=== PATIENT | female | born 1940 | race Caucasian/White ===

== ENCOUNTER 2017-11-04 09:37 | Day surgery (SDC) | payer OTHER ==
[~2017-11-04] VITALS: Ht 162.6 cm; Wt 53.2 kg
[~2017-11-04 09:37] MED LIST: ACET325 PO; ALBU90OI6 INH; ASPI81CH PO; ATOR40TA PO; Ativan0.5 MG PO; CALCAVITD PO; DILT120ERA PO; DILT180 PO; DOCU100 PO; Duoneb 2.5-0.5 M3 ML INH; FISH1000 PO; FLUSAL2505 INH; Hair, Skin & N1 EACH PO; LEVO750 PO; MIRT15 PO; MSM1000 M1 PO; OXYC1TAB11; PRED20 PO; Prednisone20 MG PO; ROFL500T PO; TIOT18; TOCO400 PO; Ventolin Soln3 ML INH; ZESTORETIC 20-121 EA; Zithromax250 MG PO
[2017-11-04] MEDS ORDERED: BREO ELLIPTA 11 EACH (10:22)
== END 2017-11-04 12:43 | disposition home or self-care (01) ==
LOC: ORSCSDS 09:37
DX: R13.10 Dysphagia, unspecified (principal); K29.70 Gastritis, unspecified, without bleeding; K20.9 Esophagitis, unspecified; Z86.010 Personal history of colon polyps; J44.9 Chronic obstructive pulmonary disease, unspecified; R09.02 Hypoxemia; I10 Essential (primary) hypertension; Z99.81 Dependence on supplemental oxygen; Z79.899 Other long term (current) drug therapy; Z87.891 Personal history of nicotine dependence
CPT/HCPCS: 88305; 88342; J7120

== ENCOUNTER 2017-12-29 13:51 | Inpatient (IN) | payer OTHER ==
[~2017-12-29] VITALS: Ht 160 cm; Wt 54.4 kg
[~2017-12-29 13:51] MED LIST changes: +BREO ELLIPTA 11 EACH; -TIOT18; +TIOT18 INH; -ZESTORETIC 20-121 EA; +ZESTORETIC 20-121 EA PO
[2018-01-04 04:19] LABS: BASOPHILS ABSOLUTE AUTO 0.01 K/mm3 (0.00-0.23); BASOPHILS PERCENT AUTO 0 % (0-2); EOSINOPHILS ABSOLUTE AUTO 0.06 K/mm3 (0.00-0.68); EOSINOPHILS PERCENT AUTO 1 % (0-6); Hematocrit 26.1 % (33.0-51.0); Hemoglobin 8.6 g/dL (11.5-16.0); IMMATURE GRAN ABSOLUTE AUTO 0.02 K/mm3 (0.00-0.10); IMMATURE GRAN PERCENT AUTO 0 % (0-1); LYMPHOCYTES ABSOLUTE AUTO 0.69 K/mm3 (0.84-5.20); LYMPHOCYTES PERCENT AUTO 12 % (21-46); MONOCYTES ABSOLUTE AUTO 0.83 K/mm3 (0.16-1.47); MONOCYTES PERCENT AUTO 15 % (4-13); Mean Corpuscular HGB 28.6 pg (26.0-34.0); Mean Corpuscular Volume 87 fL (80-100); Mean Platelet Volume 9.1 fL (9.1-12.4); NEUTROPHILS PERCENT AUTO 71 % (41-73); Platelet Count 196 K/mm3 (150-400); RDW Coefficient Variation 13.2 % (11.7-14.2); RDW Standard Deviation 41.1 fL (35.1-46.3); Red Blood Cell Count 3.01 M/mm3 (3.80-5.20); White Blood Cell Count 5.61 K/mm3 (4.00-11.30)
[2018-01-04 04:45] LABS: Bun/Creatinine Ratio 17.5 (12.0-20.0); Calcium, Blood 8.4 mg/dL (8.5-10.1); Creatinine, Blood 1.03 mg/dL (0.40-1.00); Magnesium, Blood 1.6 mg/dL (1.6-2.4); Potassium, Blood 3.7 mmol/L (3.5-5.5)
[2018-01-05] MEDS ORDERED: OXYC5 PO (08:20)
== END 2018-01-05 15:52 | disposition home health service (06) | DRG 470 ==
LOC: SURS 01-03 12:15 → PRE IP 01-03 14:00 → SURS 01-03 17:56
PROVIDERS: Orthopaedic Surgery
PROC: 0SR90JZ Replacement of Right Hip Joint with Synthetic Substitute, Open Approach (ICD-10-PCS; principal; 2018-01-03 14:00)
DX: M16.11 Unilateral primary osteoarthritis, right hip (principal); I10 Essential (primary) hypertension; D64.9 Anemia, unspecified; J44.9 Chronic obstructive pulmonary disease, unspecified; K75.9 Inflammatory liver disease, unspecified
CPT/HCPCS: 36415; 72170; 80048; 83735; 85025; 86850; 86900; 86901; 94640; 94667; 94760; 97110; 97116; 97162; 97530; C1713; C1776; G8978; G8979; J0171; J0690; J0735; J1885; J2250; J2795; J3010; J7120; Q0163

== ENCOUNTER 2018-04-18 16:08 | Inpatient (IN) | payer OTHER ==
[~2018-04-18] VITALS: Ht 160 cm; Wt 61.7 kg
[~2018-04-18 16:08] MED LIST changes: +LISINOPRIL/HYDROCHLO PO; +OXYC5 PO; -ZESTORETIC 20-121 EA PO
[2018-04-18 16:48] LABS: Base Excess Venous 3.4 mmol/L; Bicarbonate Venous 26.9 mmol/L (24.0-30.0); PCO2 Venous 46.1 mmHg (38-42); PO2 Venous 81.9 mmHg (38-42)
[2018-04-18 16:53] LABS: Hematocrit 32.4 % (33.0-51.0); Mean Corpuscular HGB 30.4 pg (26.0-34.0); Mean Corpuscular Volume 90 fL (80-100); Platelet Count 234 K/mm3 (150-400); RDW Coefficient Variation 14.6 % (11.7-14.2); Red Blood Cell Count 3.62 M/mm3 (3.80-5.20); White Blood Cell Count 14.53 K/mm3 (4.00-11.30)
[2018-04-18 17:45] LABS: BAND PERCENT MAN 16 % (0-8); BASOPHILS PERCENT MAN 0 % (0-2); EOSINOPHILS PERCENT MAN 0 % (0-6); LYMPHOCYTES ABSOLUTE MAN 0.58 K/mm3 (0.84-5.20); LYMPHOCYTES PERCENT MAN 4 % (21-46); MONOCYTES PERCENT MAN 9 % (4-13); NEUTROPHILS ABSOLUTE MAN 12.64 K/mm3 (1.96-9.15); SEG NEUTROPHILS PERCENT MAN 71 % (41-73); TOTAL CELLS COUNTED 100
[2018-04-18 20:15] LABS: Albumin/Globulin Ratio 0.7 (0.8-1.8); Bun/Creatinine Ratio 36.5 (12.0-20.0); Globulin, Blood 4.4 g/dL (2.2-4.0); Potassium, Blood 3.8 mmol/L (3.5-5.5); Total Protein, Blood 7.4 g/dL (6.4-8.2)
[2018-04-18 20:56] LABS: Bilirubin, Total 0.4 mg/dL (0.1-1.0)
[2018-04-19 03:11] LABS: Source, Urine Voided
[2018-04-19 03:13] LABS: Bilirubin, Urine Neg (Neg); Blood, Urine 1+ (Neg); Glucose Qualitative, Urine Neg (Neg); Ketones, Urine 1+ (Neg); Leukocyte Esterase, Urine 1+ (Neg); Nitrite, Urine Neg (Neg); Protein, Urine 2+ (Neg); Urobilinogen, Urine NORM (Normal)
[2018-04-19 03:17] LABS: Appearance, Urine Hazy (Clear); Color, Urine Amber (P-Yellow)
[2018-04-19 03:19] LABS: Amorphous Light (0-Heavy); Bacteria Mod /hpf; Granular Casts 0-2 /lpf (0); Hyaline Casts 0-2 /lpf (0-2); Red Blood Cells, Urine 0-2 /hpf (0-2); Squamous Epithelial Cells Not Seen /hpf (Few)
[2018-04-19 05:43] LABS: BASOPHILS ABSOLUTE AUTO 0.02 K/mm3 (0.00-0.23); BASOPHILS PERCENT AUTO 0 % (0-2); EOSINOPHILS PERCENT AUTO 0 % (0-6); Hematocrit 30.4 % (33.0-51.0); IMMATURE GRAN ABSOLUTE AUTO 0.17 K/mm3 (0.00-0.10); IMMATURE GRAN PERCENT AUTO 2 % (0-1); LYMPHOCYTES PERCENT AUTO 4 % (21-46); MONOCYTES ABSOLUTE AUTO 0.79 K/mm3 (0.16-1.47); MONOCYTES PERCENT AUTO 8 % (4-13); Mean Corpuscular HGB 29.1 pg (26.0-34.0); Mean Corpuscular HGB Conc 32.9 g/dL (31.5-36.5); Mean Corpuscular Volume 88 fL (80-100); NEUTROPHILS ABSOLUTE AUTO 9.02 K/mm3 (1.96-9.15); NEUTROPHILS PERCENT AUTO 87 % (41-73); Platelet Count 173 K/mm3 (150-400); RDW Coefficient Variation 14.5 % (11.7-14.2); Red Blood Cell Count 3.44 M/mm3 (3.80-5.20)
[2018-04-19 06:08] LABS: Bun/Creatinine Ratio 44.2 (12.0-20.0); Calcium, Blood 7.9 mg/dL (8.5-10.1); Creatinine, Blood 1.38 mg/dL (0.40-1.00); Potassium, Blood 3.5 mmol/L (3.5-5.5)
[2018-04-20 05:26] LABS: BASOPHILS ABSOLUTE AUTO 0.01 K/mm3 (0.00-0.23); BASOPHILS PERCENT AUTO 0 % (0-2); EOSINOPHILS ABSOLUTE AUTO 0.02 K/mm3 (0.00-0.68); EOSINOPHILS PERCENT AUTO 0 % (0-6); Hematocrit 29.5 % (33.0-51.0); Hemoglobin 9.3 g/dL (11.5-16.0); IMMATURE GRAN ABSOLUTE AUTO 0.02 K/mm3 (0.00-0.10); IMMATURE GRAN PERCENT AUTO 0 % (0-1); LYMPHOCYTES ABSOLUTE AUTO 0.58 K/mm3 (0.84-5.20); LYMPHOCYTES PERCENT AUTO 7 % (21-46); MONOCYTES PERCENT AUTO 12 % (4-13); Mean Corpuscular HGB 28.6 pg (26.0-34.0); Mean Corpuscular HGB Conc 31.5 g/dL (31.5-36.5); Mean Platelet Volume 9.7 fL (9.1-12.4); NEUTROPHILS PERCENT AUTO 80 % (41-73); Platelet Count 162 K/mm3 (150-400); RDW Coefficient Variation 14.1 % (11.7-14.2); RDW Standard Deviation 47.1 fL (35.1-46.3); Red Blood Cell Count 3.25 M/mm3 (3.80-5.20); White Blood Cell Count 7.83 K/mm3 (4.00-11.30)
[2018-04-20 05:37] LABS: Mean Corpuscular Volume 91 fL (80-100)
[2018-04-20 06:01] LABS: Anion Gap 7 mmol/L (6-16); Blood Urea Nitrogen 35 mg/dL (8-24); Bun/Creatinine Ratio 37.6 (12.0-20.0); CO2, Blood 24 mmol/L (21-32); Calcium, Blood 7.8 mg/dL (8.5-10.1); Chloride, Blood 108 mmol/L (98-108); Creatinine, Blood 0.93 mg/dL (0.40-1.00); Glomerular Filtration Rate >60 (60-); Glucose, Blood 120 mg/dL (70-99); Potassium, Blood 4.3 mmol/L (3.5-5.5); Sodium, Blood 139 mmol/L (136-145)
[2018-04-20] MEDS ORDERED: ALBU90OI61 INH (09:19)
[2018-04-20] MEDS ORDERED: ALBU2.5V5 NEB (09:21)
[2018-04-20] MEDS ORDERED: IPRATROPIUM BROMIDE INH (09:24)
[2018-04-20] MEDS ORDERED: DOXE10 PO (09:25)
[2018-04-20] MEDS ORDERED: HYDCHL12.5 PO (09:33)
[2018-04-20] MEDS ORDERED: Prinivil10 MG PO (09:33)
[2018-04-22 05:11] LABS: BASOPHILS ABSOLUTE AUTO 0.01 K/mm3 (0.00-0.23); BASOPHILS PERCENT AUTO 0 % (0-2); EOSINOPHILS ABSOLUTE AUTO 0.18 K/mm3 (0.00-0.68); EOSINOPHILS PERCENT AUTO 3 % (0-6); Hematocrit 27.8 % (33.0-51.0); Hemoglobin 8.8 g/dL (11.5-16.0); IMMATURE GRAN ABSOLUTE AUTO 0.12 K/mm3 (0.00-0.10); IMMATURE GRAN PERCENT AUTO 2 % (0-1); LYMPHOCYTES ABSOLUTE AUTO 0.76 K/mm3 (0.84-5.20); LYMPHOCYTES PERCENT AUTO 10 % (21-46); MONOCYTES ABSOLUTE AUTO 1.07 K/mm3 (0.16-1.47); MONOCYTES PERCENT AUTO 15 % (4-13); Mean Corpuscular HGB 27.9 pg (26.0-34.0); Mean Corpuscular HGB Conc 31.7 g/dL (31.5-36.5); Mean Platelet Volume 9.2 fL (9.1-12.4); NEUTROPHILS ABSOLUTE AUTO 5.16 K/mm3 (1.96-9.15); NEUTROPHILS PERCENT AUTO 71 % (41-73); Platelet Count 170 K/mm3 (150-400); RDW Coefficient Variation 13.9 % (11.7-14.2); RDW Standard Deviation 44.6 fL (35.1-46.3); Red Blood Cell Count 3.15 M/mm3 (3.80-5.20)
[2018-04-22 05:12] LABS: Mean Corpuscular Volume 88 fL (80-100)
[2018-04-22 05:27] LABS: Anion Gap 6 mmol/L (6-16); Blood Urea Nitrogen 16 mg/dL (8-24); Bun/Creatinine Ratio 19.2 (12.0-20.0); CO2, Blood 28 mmol/L (21-32); Calcium, Blood 7.8 mg/dL (8.5-10.1); Chloride, Blood 101 mmol/L (98-108); Creatinine, Blood 0.83 mg/dL (0.40-1.00); Glomerular Filtration Rate >60 (60-); Glucose, Blood 107 mg/dL (70-99); Potassium, Blood 3.4 mmol/L (3.5-5.5); Sodium, Blood 135 mmol/L (136-145)
[2018-04-23 05:17] LABS: BASOPHILS ABSOLUTE AUTO 0.06 K/mm3 (0.00-0.23); BASOPHILS PERCENT AUTO 1 % (0-2); EOSINOPHILS ABSOLUTE AUTO 0.02 K/mm3 (0.00-0.68); EOSINOPHILS PERCENT AUTO 0 % (0-6); Hematocrit 34.6 % (33.0-51.0); Hemoglobin 10.8 g/dL (11.5-16.0); IMMATURE GRAN PERCENT AUTO 4 % (0-1); LYMPHOCYTES ABSOLUTE AUTO 0.77 K/mm3 (0.84-5.20); LYMPHOCYTES PERCENT AUTO 8 % (21-46); MONOCYTES ABSOLUTE AUTO 1.42 K/mm3 (0.16-1.47); MONOCYTES PERCENT AUTO 15 % (4-13); Mean Corpuscular HGB 28.3 pg (26.0-34.0); Mean Corpuscular HGB Conc 31.2 g/dL (31.5-36.5); Mean Platelet Volume 8.9 fL (9.1-12.4); NEUTROPHILS ABSOLUTE AUTO 6.73 K/mm3 (1.96-9.15); NEUTROPHILS PERCENT AUTO 72 % (41-73); Platelet Count 354 K/mm3 (150-400); RDW Coefficient Variation 13.8 % (11.7-14.2); RDW Standard Deviation 45.2 fL (35.1-46.3); Red Blood Cell Count 3.82 M/mm3 (3.80-5.20)
[2018-04-23 05:27] LABS: Mean Corpuscular Volume 91 fL (80-100)
[2018-04-23 05:44] LABS: Percent Saturation 15.3 % (15.0-50.0)
[2018-04-23 05:48] LABS: Calcium, Blood 8.1 mg/dL (8.5-10.1); Creatinine, Blood 1.06 mg/dL (0.40-1.00); Magnesium, Blood 1.8 mg/dL (1.6-2.4); Potassium, Blood 4.3 mmol/L (3.5-5.5)
[2018-04-24 05:25] LABS: Hematocrit 31.6 % (33.0-51.0); Mean Corpuscular HGB 28.1 pg (26.0-34.0); Mean Corpuscular HGB Conc 31.6 g/dL (31.5-36.5); Mean Corpuscular Volume 89 fL (80-100); Mean Platelet Volume 8.8 fL (9.1-12.4); Platelet Count 334 K/mm3 (150-400); RDW Standard Deviation 46.2 fL (35.1-46.3); Red Blood Cell Count 3.56 M/mm3 (3.80-5.20); White Blood Cell Count 8.16 K/mm3 (4.00-11.30)
[2018-04-24 05:50] LABS: Albumin, Blood 1.9 g/dL (3.4-5.0); Albumin/Globulin Ratio 0.5 (0.8-1.8); Bilirubin, Total 0.1 mg/dL (0.1-1.0); Bun/Creatinine Ratio 13.9 (12.0-20.0); Creatinine, Blood 2.44 mg/dL (0.40-1.00); Globulin, Blood 3.6 g/dL (2.2-4.0); Magnesium, Blood 1.9 mg/dL (1.6-2.4); Phosphorus, Blood 2.4 mg/dL (2.5-4.9); Potassium, Blood 4.2 mmol/L (3.5-5.5); Total Protein, Blood 5.5 g/dL (6.4-8.2)
[2018-04-24 12:14] LABS: International Normalized Ratio 1.04; Prothrombin Time Results 10.7 Sec (9.7-11.5)
[2018-04-24 12:21] LABS: Bun/Creatinine Ratio 15.5 (12.0-20.0); Calcium, Blood 7.9 mg/dL (8.5-10.1); Creatinine, Blood 2.38 mg/dL (0.40-1.00); Potassium, Blood 4.4 mmol/L (3.5-5.5)
[2018-04-24 19:24] LABS: PCO2 Arterial 41.1 mmHg (35-45); PO2 Arterial 78.2 mmHg (80-100); pH Blood Arterial 7.41 (7.35-7.45)
[2018-04-25 03:56] LABS: BASOPHILS ABSOLUTE AUTO 0.06 K/mm3 (0.00-0.23); BASOPHILS PERCENT AUTO 0 % (0-2); EOSINOPHILS PERCENT AUTO 0 % (0-6); Hematocrit 28.5 % (33.0-51.0); Hemoglobin 8.9 g/dL (11.5-16.0); IMMATURE GRAN ABSOLUTE AUTO 0.39 K/mm3 (0.00-0.10); IMMATURE GRAN PERCENT AUTO 2 % (0-1); LYMPHOCYTES ABSOLUTE AUTO 0.46 K/mm3 (0.84-5.20); LYMPHOCYTES PERCENT AUTO 3 % (21-46); MONOCYTES ABSOLUTE AUTO 0.83 K/mm3 (0.16-1.47); MONOCYTES PERCENT AUTO 5 % (4-13); Mean Corpuscular HGB 27.8 pg (26.0-34.0); Mean Corpuscular HGB Conc 31.2 g/dL (31.5-36.5); Mean Corpuscular Volume 89 fL (80-100); NEUTROPHILS ABSOLUTE AUTO 15.99 K/mm3 (1.96-9.15); NEUTROPHILS PERCENT AUTO 90 % (41-73); Platelet Count 287 K/mm3 (150-400); RDW Standard Deviation 45.9 fL (35.1-46.3); White Blood Cell Count 17.73 K/mm3 (4.00-11.30)
[2018-04-25 04:18] LABS: Albumin, Blood 1.2 g/dL (3.4-5.0); Albumin/Globulin Ratio 0.5 (0.8-1.8); Bilirubin, Total 0.3 mg/dL (0.1-1.0); Bun/Creatinine Ratio 17.9 (12.0-20.0); Calcium, Blood 6.8 mg/dL (8.5-10.1); Creatinine, Blood 2.01 mg/dL (0.40-1.00); Globulin, Blood 2.5 g/dL (2.2-4.0); Magnesium, Blood 1.5 mg/dL (1.6-2.4); Phosphorus, Blood 2.8 mg/dL (2.5-4.9); Potassium, Blood 5.3 mmol/L (3.5-5.5); Total Protein, Blood 3.7 g/dL (6.4-8.2)
[2018-04-25 06:22] LABS: PCO2 Arterial 41.8 mmHg (35-45); PO2 Arterial 79.9 mmHg (80-100); pH Blood Arterial 7.43 (7.35-7.45)
[2018-04-26 04:04] LABS: BASOPHILS ABSOLUTE AUTO 0.02 K/mm3 (0.00-0.23); BASOPHILS PERCENT AUTO 0 % (0-2); EOSINOPHILS ABSOLUTE AUTO 0.14 K/mm3 (0.00-0.68); EOSINOPHILS PERCENT AUTO 1 % (0-6); Hematocrit 26.9 % (33.0-51.0); Hemoglobin 8.6 g/dL (11.5-16.0); IMMATURE GRAN ABSOLUTE AUTO 0.36 K/mm3 (0.00-0.10); IMMATURE GRAN PERCENT AUTO 3 % (0-1); LYMPHOCYTES ABSOLUTE AUTO 0.99 K/mm3 (0.84-5.20); LYMPHOCYTES PERCENT AUTO 7 % (21-46); MONOCYTES ABSOLUTE AUTO 0.94 K/mm3 (0.16-1.47); MONOCYTES PERCENT AUTO 7 % (4-13); Mean Corpuscular HGB 28.3 pg (26.0-34.0); Mean Corpuscular Volume 89 fL (80-100); NEUTROPHILS ABSOLUTE AUTO 11.09 K/mm3 (1.96-9.15); NEUTROPHILS PERCENT AUTO 82 % (41-73); Platelet Count 242 K/mm3 (150-400); RDW Coefficient Variation 14.2 % (11.7-14.2); RDW Standard Deviation 46.2 fL (35.1-46.3); Red Blood Cell Count 3.04 M/mm3 (3.80-5.20); White Blood Cell Count 13.54 K/mm3 (4.00-11.30)
[2018-04-26 04:30] LABS: Albumin, Blood 1.4 g/dL (3.4-5.0); Albumin/Globulin Ratio 0.5 (0.8-1.8); Bilirubin, Total 0.1 mg/dL (0.1-1.0); Bun/Creatinine Ratio 24.8 (12.0-20.0); Calcium, Blood 7.3 mg/dL (8.5-10.1); Creatinine, Blood 1.25 mg/dL (0.40-1.00); Phosphorus, Blood 3.2 mg/dL (2.5-4.9); Total Protein, Blood 4.4 g/dL (6.4-8.2)
[2018-04-26 05:38] LABS: PCO2 Arterial 46.1 mmHg (35-45); PO2 Arterial 89.5 mmHg (80-100); pH Blood Arterial 7.44 (7.35-7.45)
[2018-04-27 04:17] LABS: BASOPHILS ABSOLUTE AUTO 0.04 K/mm3 (0.00-0.23); BASOPHILS PERCENT AUTO 0 % (0-2); EOSINOPHILS ABSOLUTE AUTO 0.26 K/mm3 (0.00-0.68); EOSINOPHILS PERCENT AUTO 2 % (0-6); Hematocrit 27.2 % (33.0-51.0); Hemoglobin 8.6 g/dL (11.5-16.0); IMMATURE GRAN ABSOLUTE AUTO 0.56 K/mm3 (0.00-0.10); IMMATURE GRAN PERCENT AUTO 5 % (0-1); LYMPHOCYTES ABSOLUTE AUTO 1.19 K/mm3 (0.84-5.20); LYMPHOCYTES PERCENT AUTO 11 % (21-46); MONOCYTES ABSOLUTE AUTO 1.08 K/mm3 (0.16-1.47); MONOCYTES PERCENT AUTO 10 % (4-13); Mean Corpuscular HGB 28.2 pg (26.0-34.0); Mean Corpuscular HGB Conc 31.6 g/dL (31.5-36.5); Mean Corpuscular Volume 89 fL (80-100); Mean Platelet Volume 9.1 fL (9.1-12.4); NEUTROPHILS ABSOLUTE AUTO 7.81 K/mm3 (1.96-9.15); NEUTROPHILS PERCENT AUTO 71 % (41-73); Platelet Count 248 K/mm3 (150-400); RDW Coefficient Variation 14.4 % (11.7-14.2); RDW Standard Deviation 46.8 fL (35.1-46.3); Red Blood Cell Count 3.05 M/mm3 (3.80-5.20); White Blood Cell Count 10.94 K/mm3 (4.00-11.30)
[2018-04-27 04:32] LABS: Albumin, Blood 1.4 g/dL (3.4-5.0); Anion Gap 5 mmol/L (6-16); Blood Urea Nitrogen 24 mg/dL (8-24); Bun/Creatinine Ratio 29.6 (12.0-20.0); CO2, Blood 31 mmol/L (21-32); Calcium, Blood 7.5 mg/dL (8.5-10.1); Chloride, Blood 101 mmol/L (98-108); Creatinine, Blood 0.81 mg/dL (0.40-1.00); Glomerular Filtration Rate >60 (60-); Glucose, Blood 142 mg/dL (70-99); Phosphorus, Blood 3.4 mg/dL (2.5-4.9); Potassium, Blood 5.1 mmol/L (3.5-5.5); Sodium, Blood 137 mmol/L (136-145)
[2018-04-28 05:25] LABS: Source, Urine Catheter
[2018-04-28 05:36] LABS: Bilirubin, Urine Neg (Neg); Blood, Urine Neg (Neg); Glucose Qualitative, Urine Neg (Neg); Ketones, Urine Neg (Neg); Leukocyte Esterase, Urine 1+ (Neg); Nitrite, Urine Pos (Neg); Protein, Urine Neg (Neg); Specific Gravity, Urine 1.005 (1.003-1.022); Urobilinogen, Urine NORM (Normal)
[2018-04-28 05:45] LABS: Appearance, Urine Hazy (Clear); Color, Urine Yellow (P-Yellow)
[2018-04-28 05:47] LABS: Amorphous Light (0-Heavy); Bacteria Many /hpf; Red Blood Cells, Urine Not Seen /hpf (0-2); Squamous Epithelial Cells Not Seen /hpf (Few)
[2018-04-29 05:06] LABS: BASOPHILS ABSOLUTE AUTO 0.04 K/mm3 (0.00-0.23); BASOPHILS PERCENT AUTO 0 % (0-2); EOSINOPHILS ABSOLUTE AUTO 0.17 K/mm3 (0.00-0.68); EOSINOPHILS PERCENT AUTO 2 % (0-6); Hematocrit 28.8 % (33.0-51.0); Hemoglobin 9.1 g/dL (11.5-16.0); IMMATURE GRAN ABSOLUTE AUTO 0.42 K/mm3 (0.00-0.10); IMMATURE GRAN PERCENT AUTO 4 % (0-1); LYMPHOCYTES ABSOLUTE AUTO 1.23 K/mm3 (0.84-5.20); LYMPHOCYTES PERCENT AUTO 12 % (21-46); MONOCYTES ABSOLUTE AUTO 1.31 K/mm3 (0.16-1.47); MONOCYTES PERCENT AUTO 13 % (4-13); Mean Corpuscular HGB 28.1 pg (26.0-34.0); Mean Corpuscular HGB Conc 31.6 g/dL (31.5-36.5); Mean Corpuscular Volume 89 fL (80-100); Mean Platelet Volume 9.4 fL (9.1-12.4); NEUTROPHILS ABSOLUTE AUTO 6.93 K/mm3 (1.96-9.15); NEUTROPHILS PERCENT AUTO 69 % (41-73); Platelet Count 318 K/mm3 (150-400); RDW Coefficient Variation 14.5 % (11.7-14.2); RDW Standard Deviation 46.8 fL (35.1-46.3); Red Blood Cell Count 3.24 M/mm3 (3.80-5.20)
[2018-04-29 05:43] LABS: Anion Gap 8 mmol/L (6-16); Blood Urea Nitrogen 24 mg/dL (8-24); Bun/Creatinine Ratio 32.7 (12.0-20.0); CO2, Blood 30 mmol/L (21-32); Calcium, Blood 7.6 mg/dL (8.5-10.1); Chloride, Blood 98 mmol/L (98-108); Creatinine, Blood 0.73 mg/dL (0.40-1.00); Glomerular Filtration Rate >60 (60-); Glucose, Blood 122 mg/dL (70-99); Magnesium, Blood 1.6 mg/dL (1.6-2.4); Potassium, Blood 4.4 mmol/L (3.5-5.5); Sodium, Blood 136 mmol/L (136-145)
[2018-04-29 08:29] LABS: CHOL/HDL RATIO 3.1; Cholesterol 84 mg/dL (50-200); HDL Cholesterol 27 mg/dL (>39); LDL/HDL RATIO 1.5; Low Density Lipoprotein Chol 41 mg/dL (0-110); Triglycerides 78 mg/dL (30-160); Very Low Density Lipoprot Chol 15 mg/dL (6-32)
[2018-05-02 05:23] LABS: BASOPHILS ABSOLUTE AUTO 0.02 K/mm3 (0.00-0.23); BASOPHILS PERCENT AUTO 0 % (0-2); EOSINOPHILS ABSOLUTE AUTO 0.09 K/mm3 (0.00-0.68); EOSINOPHILS PERCENT AUTO 2 % (0-6); Hematocrit 26.8 % (33.0-51.0); Hemoglobin 8.4 g/dL (11.5-16.0); IMMATURE GRAN ABSOLUTE AUTO 0.14 K/mm3 (0.00-0.10); IMMATURE GRAN PERCENT AUTO 2 % (0-1); LYMPHOCYTES ABSOLUTE AUTO 0.79 K/mm3 (0.84-5.20); LYMPHOCYTES PERCENT AUTO 14 % (21-46); MONOCYTES PERCENT AUTO 21 % (4-13); Mean Corpuscular HGB 27.8 pg (26.0-34.0); Mean Corpuscular HGB Conc 31.3 g/dL (31.5-36.5); Mean Corpuscular Volume 89 fL (80-100); Mean Platelet Volume 9.6 fL (9.1-12.4); NEUTROPHILS ABSOLUTE AUTO 3.48 K/mm3 (1.96-9.15); NEUTROPHILS PERCENT AUTO 61 % (41-73); Platelet Count 365 K/mm3 (150-400); RDW Coefficient Variation 14.2 % (11.7-14.2); RDW Standard Deviation 45.9 fL (35.1-46.3); Red Blood Cell Count 3.02 M/mm3 (3.80-5.20); White Blood Cell Count 5.72 K/mm3 (4.00-11.30)
[2018-05-02 05:42] LABS: Anion Gap 6 mmol/L (6-16); Blood Urea Nitrogen 11 mg/dL (8-24); Bun/Creatinine Ratio 14.2 (12.0-20.0); CO2, Blood 29 mmol/L (21-32); Calcium, Blood 7.5 mg/dL (8.5-10.1); Chloride, Blood 102 mmol/L (98-108); Creatinine, Blood 0.77 mg/dL (0.40-1.00); Glomerular Filtration Rate >60 (60-); Glucose, Blood 100 mg/dL (70-99); Magnesium, Blood 1.4 mg/dL (1.6-2.4); Phosphorus, Blood 2.5 mg/dL (2.5-4.9); Potassium, Blood 3.9 mmol/L (3.5-5.5); Sodium, Blood 137 mmol/L (136-145)
[2018-05-03 06:52] LABS: Anion Gap 4 mmol/L (6-16); Blood Urea Nitrogen 8 mg/dL (8-24); Bun/Creatinine Ratio 12.2 (12.0-20.0); CO2, Blood 28 mmol/L (21-32); Calcium, Blood 7.5 mg/dL (8.5-10.1); Chloride, Blood 105 mmol/L (98-108); Creatinine, Blood 0.66 mg/dL (0.40-1.00); Glomerular Filtration Rate >60 (60-); Glucose, Blood 94 mg/dL (70-99); Magnesium, Blood 1.8 mg/dL (1.6-2.4); Sodium, Blood 137 mmol/L (136-145)
== END 2018-05-06 17:20 | DRG 853 ==
LOC: ER 16:08 → MEDS 16:09 → ICUE 18:15 → MEDS 18:16 → ICUE 04-24 15:55 → SURS 04-27 11:24
PROVIDERS: Emergency Medicine; Hospitalist; Internal Medicine; Internal Medicine Critical Care Medicine; Surgery
PROC: 0D1B0Z4 Bypass Ileum to Cutaneous, Open Approach (ICD-10-PCS; 2018-04-24)
PROC: 0DTL0ZZ Resection of Transverse Colon, Open Approach (ICD-10-PCS; principal; 2018-04-24 13:00)
PROC: 0DTK0ZZ Resection of Ascending Colon, Open Approach (ICD-10-PCS; 2018-04-24 13:00)
PROC: 0DTM0ZZ Resection of Descending Colon, Open Approach (ICD-10-PCS; 2018-04-24 13:00)
DX: A41.9 Sepsis, unspecified organism (principal); J96.21 Acute and chronic respiratory failure with hypoxia; I50.21 Acute systolic (congestive) heart failure; N17.9 Acute kidney failure, unspecified; K56.609 Unspecified intestinal obstruction, unspecified as to partial versus complete obstruction; I13.0 Hypertensive heart and chronic kidney disease with heart failure and stage 1 through stage 4 chronic kidney disease, or unspecified chronic kidney disease; T82.868A Thrombosis due to vascular prosthetic devices, implants and grafts, initial encounter; J44.9 Chronic obstructive pulmonary disease, unspecified; E86.0 Dehydration; Z99.81 Dependence on supplemental oxygen; K75.9 Inflammatory liver disease, unspecified; K52.9 Noninfective gastroenteritis and colitis, unspecified; E78.5 Hyperlipidemia, unspecified; F41.9 Anxiety disorder, unspecified; R33.9 Retention of urine, unspecified; I12.9 Hypertensive chronic kidney disease with stage 1 through stage 4 chronic kidney disease, or unspecified chronic kidney disease; N18.9 Chronic kidney disease, unspecified; E87.6 Hypokalemia; K57.30 Diverticulosis of large intestine without perforation or abscess without bleeding; Z22.39 Carrier of other specified bacterial diseases; Z79.891 Long term (current) use of opiate analgesic; Z87.891 Personal history of nicotine dependence; Z79.899 Other long term (current) drug therapy; Z28.20 Immunization not carried out because of patient decision for unspecified reason
CPT/HCPCS: 31720; 36415; 36569; 36600; 51702; 71045; 71260; 74176; 74177; 80048; 80053; 80061; 80069; 81001; 82330; 82728; 82803; 82947; 83540; 83550; 83605; 83690; 83735; 84100; 85025; 85027; 85610; 85730; 86850; 86900; 86901; 87077; 87086; 87186; 88307; 93005; 93010; 93306; 93971; 94002; 94003; 94640; 94664; 94667; 94760; 94762; 96374; 96375; 97110; 97116; 97163; 97530; 99285-25; C1751; C1894; C9113; G8978; G8979; J0696; J1170; J1650; J1940; J2250; J2370; J2405; J2550; J2765; J3010; J3475; J7030; J7050; J7120; Q9967

== ENCOUNTER 2018-05-31 18:35 | Observation (INO) | payer OTHER ==
[~2018-05-31] VITALS: Ht 160 cm; Wt 50.9 kg
[~2018-05-31 18:35] MED LIST changes: +ALBU2.5V5 NEB; +ALBU90OI61 INH; +DOXE10 PO; +HYDCHL12.5 PO; +IPRATROPIUM BROMIDE INH; +Prinivil10 MG PO
[2018-05-31 19:15] LABS: BASOPHILS ABSOLUTE AUTO 0.04 K/mm3 (0.00-0.23); BASOPHILS PERCENT AUTO 0 % (0-2); EOSINOPHILS ABSOLUTE AUTO 0.15 K/mm3 (0.00-0.68); EOSINOPHILS PERCENT AUTO 1 % (0-6); Hematocrit 36.6 % (33.0-51.0); Hemoglobin 11.6 g/dL (11.5-16.0); IMMATURE GRAN ABSOLUTE AUTO 0.17 K/mm3 (0.00-0.10); IMMATURE GRAN PERCENT AUTO 2 % (0-1); LYMPHOCYTES ABSOLUTE AUTO 2.06 K/mm3 (0.84-5.20); LYMPHOCYTES PERCENT AUTO 20 % (21-46); MONOCYTES ABSOLUTE AUTO 1.54 K/mm3 (0.16-1.47); MONOCYTES PERCENT AUTO 15 % (4-13); Mean Corpuscular HGB 28.1 pg (26.0-34.0); Mean Corpuscular HGB Conc 31.7 g/dL (31.5-36.5); Mean Corpuscular Volume 89 fL (80-100); NEUTROPHILS ABSOLUTE AUTO 6.63 K/mm3 (1.96-9.15); NEUTROPHILS PERCENT AUTO 63 % (41-73); Platelet Count 330 K/mm3 (150-400); RDW Coefficient Variation 14.5 % (11.7-14.2); RDW Standard Deviation 46.6 fL (35.1-46.3); Red Blood Cell Count 4.13 M/mm3 (3.80-5.20); White Blood Cell Count 10.59 K/mm3 (4.00-11.30)
[2018-05-31 19:31] LABS: International Normalized Ratio 1.18
[2018-05-31 19:33] LABS: Albumin, Blood 3.8 g/dL (3.4-5.0); Albumin/Globulin Ratio 0.7 (0.8-1.8); Bilirubin, Total 0.4 mg/dL (0.1-1.0); Bun/Creatinine Ratio 43.8 (12.0-20.0); Calcium, Blood 9.2 mg/dL (8.5-10.1); Creatinine, Blood 1.3 mg/dL (0.40-1.00); Globulin, Blood 5.2 g/dL (2.2-4.0); Potassium, Blood 4.4 mmol/L (3.5-5.5)
--- NOTE | 2018-05-31 21:30 | NUR ---
Admission: Patient arrived to unit via stretcher, accompanied by ED nurse. A/o x4, VSS, denies pain, discomfort, SOB, or dyspnea. O2-97-99% on 3L/NC. Ileostomy appliance shows large amount of liquid green stool, no blood noted. Very scant amount of stool leaking from what appears to be vent-port on drainage bag, appliance otherwise intact. Plan to change ileostomy bag, will also assess stoma at that time. Instructed to use of call light and to not get out of bed without assistance. Regular diet ordered, took PO pill with water without difficulty. Plan to call Dr. Figueroa and to confirm diet order, and to request prn melatonin and Doxepin (per patients request). Will continue to monitor for pain, safety, comfort.
[2018-05-31] MEDS ORDERED: FURO40 PO (22:42)
[2018-05-31] MEDS ORDERED: MELA3 PO (22:43)
[2018-05-31] MEDS ORDERED: Micro-K10 MEQ PO (22:44)
[2018-05-31] MEDS ORDERED: CITA20 PO (22:45)
[2018-05-31] MEDS ORDERED: CARV6.25 PO (22:46)
[2018-05-31] MEDS ORDERED: MORP30 PO (22:48)
[2018-05-31] MEDS ORDERED: ALPR.25 PO (22:48)
[2018-06-01 03:33] LABS: Hematocrit 33.8 % (33.0-51.0); Hemoglobin 10.7 g/dL (11.5-16.0); Mean Corpuscular HGB 28.2 pg (26.0-34.0); Mean Corpuscular HGB Conc 31.7 g/dL (31.5-36.5); Mean Corpuscular Volume 89 fL (80-100); Mean Platelet Volume 9.1 fL (9.1-12.4); Platelet Count 291 K/mm3 (150-400); RDW Coefficient Variation 14.3 % (11.7-14.2); RDW Standard Deviation 46.5 fL (35.1-46.3); Red Blood Cell Count 3.79 M/mm3 (3.80-5.20); White Blood Cell Count 8.97 K/mm3 (4.00-11.30)
[2018-06-01 03:49] LABS: Bun/Creatinine Ratio 48.8 (12.0-20.0); Calcium, Blood 8.6 mg/dL (8.5-10.1); Creatinine, Blood 1.25 mg/dL (0.40-1.00); Potassium, Blood 4.3 mmol/L (3.5-5.5)
--- NOTE | 2018-06-01 06:16 | NUR ---
Shift Summary: Patient slept well throughout shift when not roused by staff. Continues to deny pain, discomfort, SOB or dyspnea throughout shift, VSS. Attempted to change ileostomy drainage bag, but not able to locate correct sized bag to fit current appliance. No further leakage noted from current drainage bag (vent port), therefore current appliance/bag left in place. Total of 800ml output noted from ileostomy, only last 150ml emptied (end of shift) showed any signs of blood. Very light pink tinged liquid with chunks of food noted. Other amounts emptied from ileostomy showed green tinged watery consistency with chunks of food. H+H remained stable with morning lab values. Contacted Dr. Tubbs at approx 0230hr and received order for LR at 125ml/hr. Morning labs showed decrease in Na from [address] Tubbs and received order to change IV fluid to NS at 150ml/hr. Peripheral IV to lt AC remains patent and intact. Stand-pivot via [id number] to BEC without difficulty. Calm and cooperative with staff, makes needs known. Will continue to monitor until report to day shift RN.
--- NOTE | 2018-06-01 07:50 | NUR ---
ASSUMED CARE: PT RESTING IN BED. DENIES ABDOMINAL PAIN. OSTOMY PUTTING OUT BROWN LIQUID, NO BLOOD NOTED AT THIS TIME. DR STAFFORD HAS BEEN BY TO SEE PT AND HAS SEEN FLUID IN OSTOMY BAG. NPO UNTIL GI CONSULTS NO FURTHER NEEDS OR CONCERNS AT THIS TIME
--- NOTE | 2018-06-01 11:28 | NUR ---
PT REQUESTED ASSISTANCE TO BSC. STATED SHE WAS FEELING DIZZY WHEN UP OUT OF BED. ORTHOS DONE WITH POSITIVES NOTED. PT'S JULIENNE STATED SHE WAS NEEDING TO LEAVE FOR ERRANDS AND WAS WONDERING WHEN DR MEDRANO WOULD ARRIVE. SPOKE WITH DR MEDRANO'S OFFICE AND DETERMINED HE WOULD NOT BE HERE UNTIL AT LEAST AFTER OFFICE HOURS. CALL TO DR STAFFORD WHO ORDERED DIET FOR PT AND MADE HIM AWARE OF POSITIVE ORTHOS. NO FURTHER NEEDS OR CONCERNS AT THIS TIME
[2018-06-01 14:07] LABS: BASOPHILS ABSOLUTE AUTO 0.01 K/mm3 (0.00-0.23); BASOPHILS PERCENT AUTO 0 % (0-2); EOSINOPHILS ABSOLUTE AUTO 0.14 K/mm3 (0.00-0.68); EOSINOPHILS PERCENT AUTO 2 % (0-6); Hemoglobin 10.3 g/dL (11.5-16.0); IMMATURE GRAN PERCENT AUTO 1 % (0-1); LYMPHOCYTES ABSOLUTE AUTO 1.65 K/mm3 (0.84-5.20); LYMPHOCYTES PERCENT AUTO 20 % (21-46); MONOCYTES ABSOLUTE AUTO 1.04 K/mm3 (0.16-1.47); MONOCYTES PERCENT AUTO 13 % (4-13); Mean Corpuscular HGB 29.2 pg (26.0-34.0); Mean Corpuscular HGB Conc 32.2 g/dL (31.5-36.5); Mean Corpuscular Volume 91 fL (80-100); Mean Platelet Volume 9.2 fL (9.1-12.4); NEUTROPHILS ABSOLUTE AUTO 5.28 K/mm3 (1.96-9.15); NEUTROPHILS PERCENT AUTO 64 % (41-73); Platelet Count 251 K/mm3 (150-400); RDW Coefficient Variation 14.6 % (11.7-14.2); RDW Standard Deviation 46.7 fL (35.1-46.3); Red Blood Cell Count 3.53 M/mm3 (3.80-5.20); White Blood Cell Count 8.22 K/mm3 (4.00-11.30)
--- NOTE | 2018-06-01 16:21 | NUR ---
review of pt with nursing. suggested we wait to review polst and AD again will attempt again and contact family
[2018-06-01 16:45] LABS: Campylobacter Sp Not Detected (NOT DETECT); Plesiomonas Shigelloides Not Detected (NOT DETECT); Salmonella Sp Not Detected (NOT DETECT); Vibrio Cholerae Not Detected (NOT DETECT); Vibrio Sp Not Detected (NOT DETECT); Yersinia Enterocolitica Not Detected (NOT DETECT)
--- NOTE | 2018-06-01 16:45 | NUR ---
REPORT CALLED TO SUZAN HE. PT TRANSFERRED TO ROOM 311. FAMILY AWARE. BELONGINGS AND MEDS TRANSFERRED WITH PT. NO FURTHER QUESTIONS OR CONCERNS.
[2018-06-01 16:46] LABS: Adenovirus F 40/41 Not Detected (NOT DETECT); Astrovirus Not Detected (NOT DETECT); Cryptosporidium Not Detected (NOT DETECT); Cyclospora Cayetanensis Not Detected (NOT DETECT); E. Coli O157 Not Detected (NOT DETECT); Entamoeba Histolytica Not Detected (NOT DETECT); Enteroaggregative E. coli-EAEC Not Detected (NOT DETECT); Enteropathogenic E. coli-EPEC Not Detected (NOT DETECT); Enterotoxigenic E. coli-ETEC Not Detected (NOT DETECT); Giardia Lamblia Not Detected (NOT DETECT); Norovirus GI/GII Not Detected (NOT DETECT); Rotavirus A Not Detected (NOT DETECT); Sapovirus Not Detected (NOT DETECT); Shiga Toxin-prod E. coli-STEC Not Detected (NOT DETECT); Shigella/Enteroin E. coli-EIEC Not Detected (NOT DETECT)
--- NOTE | 2018-06-01 17:14 | NUR ---
SHIFT SUMMARY PT WAS ICU XFER THIS SHIFT, REC REPORT FROM SUZAN WALLER. FAMILY ARRIVED TO ROOM W/PT. NO ACUTE CHANGES SINCE ASSUMING CARE, WILL CONT TO MONITOR UNTIL REPORT GIVEN TO ESSENCE MARES.
[2018-06-02 05:08] LABS: BASOPHILS ABSOLUTE AUTO 0.01 K/mm3 (0.00-0.23); BASOPHILS PERCENT AUTO 0 % (0-2); EOSINOPHILS ABSOLUTE AUTO 0.21 K/mm3 (0.00-0.68); EOSINOPHILS PERCENT AUTO 4 % (0-6); Hematocrit 28.2 % (33.0-51.0); Hemoglobin 8.9 g/dL (11.5-16.0); IMMATURE GRAN ABSOLUTE AUTO 0.05 K/mm3 (0.00-0.10); IMMATURE GRAN PERCENT AUTO 1 % (0-1); LYMPHOCYTES ABSOLUTE AUTO 1.45 K/mm3 (0.84-5.20); LYMPHOCYTES PERCENT AUTO 28 % (21-46); MONOCYTES ABSOLUTE AUTO 0.69 K/mm3 (0.16-1.47); MONOCYTES PERCENT AUTO 13 % (4-13); Mean Corpuscular HGB Conc 31.6 g/dL (31.5-36.5); Mean Corpuscular Volume 92 fL (80-100); Mean Platelet Volume 9.4 fL (9.1-12.4); NEUTROPHILS ABSOLUTE AUTO 2.79 K/mm3 (1.96-9.15); NEUTROPHILS PERCENT AUTO 54 % (41-73); Platelet Count 194 K/mm3 (150-400); RDW Coefficient Variation 14.5 % (11.7-14.2); RDW Standard Deviation 47.2 fL (35.1-46.3); Red Blood Cell Count 3.07 M/mm3 (3.80-5.20)
--- NOTE | 2018-06-02 05:32 | NUR ---
SHIFT SUMMARY NO CHANGES THIS SHIFT. PT SLEEPS FOR MOST OF THE NIGHT, AND HAS NO NEEDS. IVF INFUSING AT 150 ML/HR ORDERED. PT OSTOMY CONTINUES TO HAVE LARGE AMOUNTS OF BROWN LIQUID STOOL. PT MANAGES OSTOMY INDEPENDENTLY. PT A/OX4, SBA TO BATHROOM. ASSESSMENT HAS REMAINED UNCHANGED. WILL CONTINUE TO MONITOR AND REPORT TO ONCOMING RN.
[2018-06-02] MEDS ORDERED: ELIQUIS5 M1 PO (12:10)
[2018-06-02] MEDS ORDERED: LOPE2C PO (12:19)
[2018-06-02] MEDS ORDERED: Questran4 GM PO (12:44)
--- NOTE | 2018-06-02 13:01 | NUR ---
SHIFT SUMMARY/DC PT HAS HAD NO ACUTE CHANGES THIS SHIFT, NO COMPLAINTS OF ANY KIND. REVIEWED DC INSTRUCTIONS W/PT & ANDRE, BOTH VERBALIZED UNDERSTANDING. PT WAS TRANSPORTED VIA W/C TO DC IN PRIVATE VEHICLE ON HOME O2 TANK.
== END 2018-06-02 12:53 | disposition home or self-care (01) ==
LOC: ER 18:35 → ICUW 18:36 → ICUE 18:36 → MEDS 21:18 → ICUE 21:27 → MEDS 06-01 16:30
PROVIDERS: Emergency Medicine; Hospitalist; Internal Medicine Gastroenterology; ADMIT Internal Medicine
DX: K92.2 Gastrointestinal hemorrhage, unspecified (principal); N17.9 Acute kidney failure, unspecified; J44.9 Chronic obstructive pulmonary disease, unspecified; I82.621 Acute embolism and thrombosis of deep veins of right upper extremity; I82.611 Acute embolism and thrombosis of superficial veins of right upper extremity; I10 Essential (primary) hypertension; E87.1 Hypo-osmolality and hyponatremia; Z93.2 Ileostomy status; Z88.1 Allergy status to other antibiotic agents; Z79.899 Other long term (current) drug therapy; Z79.01 Long term (current) use of anticoagulants
CPT/HCPCS: 36415; 80048; 80053; 85025; 85027; 85610; 86850; 86900; 86901; 87493; 87507; 93005; 93010; 94640; 94760; 96360; 96361; 97110; 97162; 97165; 97530; 97535; 99285-25; G0378; J7030; J7120

== ENCOUNTER 2019-11-30 18:49 | Emergency (ER) | payer OTHER ==
[~2019-11-30] VITALS: Ht 160 cm; Wt 54.9 kg
[~2019-11-30 18:49] MED LIST changes: +ALPR.25 PO; +CARV6.25 PO; +CITA20 PO; +ELIQUIS5 M1 PO; +FURO40 PO; +LOPE2C PO; +MELA3 PO; +MORP30 PO; +Micro-K10 MEQ PO; +Questran4 GM PO
[2019-11-30 19:33] LABS: BASOPHILS ABSOLUTE AUTO 0.03 K/mm3 (0.00-0.23); BASOPHILS PERCENT AUTO 0 % (0-2); EOSINOPHILS ABSOLUTE AUTO 0.03 K/mm3 (0.00-0.68); EOSINOPHILS PERCENT AUTO 0 % (0-6)
[2019-11-30 19:50] LABS: Alanine Aminotransfer (ALT/SGP 21 U/L (12-78); Albumin, Blood 3.2 g/dL (3.4-5.0); Albumin/Globulin Ratio 0.7 (0.8-1.8); Alk Phos 64 U/L (50-136); Anion Gap 7 mmol/L (6-16); Aspartate Aminotrans (AST/SGOT 27 U/L (12-37); Bilirubin, Total 0.2 mg/dL (0.1-1.0); Blood Urea Nitrogen 17 mg/dL (8-24); Bun/Creatinine Ratio 18.3 (12.0-20.0); CO2, Blood 23 mmol/L (21-32); Calcium, Blood 8.5 mg/dL (8.5-10.1); Chloride, Blood 110 mmol/L (98-108); Creatinine, Blood 0.93 mg/dL (0.40-1.00); Globulin, Blood 4.8 g/dL (2.2-4.0); Glomerular Filtration Rate >60 (60-); Glucose, Blood 117 mg/dL (70-99); Potassium, Blood 3.5 mmol/L (3.5-5.5); Sodium, Blood 140 mmol/L (136-145); Troponin I 0.202 ng/mL (0.000-0.040)
[2019-11-30 19:56] LABS: Hematocrit 42.6 % (33.0-51.0); Hemoglobin 13.8 g/dL (11.5-16.0); IMMATURE GRAN ABSOLUTE AUTO 0.03 K/mm3 (0.00-0.10); IMMATURE GRAN PERCENT AUTO 0 % (0-1); LYMPHOCYTES ABSOLUTE AUTO 0.63 K/mm3 (0.84-5.20); LYMPHOCYTES PERCENT AUTO 9 % (21-46); MONOCYTES ABSOLUTE AUTO 0.77 K/mm3 (0.16-1.47); MONOCYTES PERCENT AUTO 11 % (4-13); Mean Corpuscular HGB 28.3 pg (26.0-34.0); Mean Corpuscular HGB Conc 32.4 g/dL (31.5-36.5); Mean Corpuscular Volume 87 fL (80-100); NEUTROPHILS ABSOLUTE AUTO 5.53 K/mm3 (1.96-9.15); NEUTROPHILS PERCENT AUTO 79 % (41-73); Platelet Count 259 K/mm3 (150-400); RDW Coefficient Variation 13.6 % (11.7-14.2); RDW Standard Deviation 43.8 fL (35.1-46.3); Red Blood Cell Count 4.88 M/mm3 (3.80-5.20); White Blood Cell Count 7.02 K/mm3 (4.00-11.30)
[2019-11-30 21:50] LABS: Source, Urine Clean Catch
[2019-11-30 21:55] LABS: Bilirubin, Urine Neg (Neg); Blood, Urine Neg (Neg); Glucose Qualitative, Urine Neg (Neg); Ketones, Urine Neg (Neg); Leukocyte Esterase, Urine Neg (Neg); Nitrite, Urine Neg (Neg); Protein, Urine Neg (Neg); Urobilinogen, Urine NORM (Normal)
[2019-11-30 21:56] LABS: Appearance, Urine Clear (Clear); Color, Urine Yellow (P-Yellow)
[2019-11-30] MEDS ORDERED: DILT30 PO (23:06)
[2019-11-30] MEDS ORDERED: LOPE2C PO (23:07)
[2019-11-30] MEDS ORDERED: FERSU300 PO (23:07)
[2019-11-30] MEDS ORDERED: SERT50 PO (23:08)
[2019-11-30] MEDS ORDERED: ELIQUIS5 MG PO (23:50)
== END 2019-12-01 00:04 | disposition home or self-care (01) ==
LOC: ER 18:49
PROVIDERS: Emergency Medicine; Physician Assistant
DX: I48.91 Unspecified atrial fibrillation (principal); R91.8 Other nonspecific abnormal finding of lung field; Z88.1 Allergy status to other antibiotic agents; Z79.899 Other long term (current) drug therapy; J43.9 Emphysema, unspecified; F41.9 Anxiety disorder, unspecified; I10 Essential (primary) hypertension; Z86.19 Personal history of other infectious and parasitic diseases; Z87.891 Personal history of nicotine dependence
CPT/HCPCS: 36415; 71046; 71260; 80053; 81003; 83605; 84484; 85025; 87040; 93005; 93010; 96360-59; 96361; 99284-25; J7030; Q9967

== ENCOUNTER 2021-03-09 16:12 | Inpatient (IN) | payer OTHER ==
[~2021-03-09] VITALS: Ht 165.1 cm; Wt 46.6 kg
[~2021-03-09 16:12] MED LIST changes: -BREO ELLIPTA 11 EACH; +BREO ELLIPTA 21 EAC1 INH; +DILT30 PO; -ELIQUIS5 M1 PO; +ELIQUIS5 M2 PO; +ELIQUIS5 MG PO; +FERSU300 PO; +SERT50 PO
[2021-03-09 17:17] LABS: Source, Urine Voided
[2021-03-09 17:22] LABS: Albumin, Blood 3.2 g/dL (3.4-5.0); Albumin/Globulin Ratio 0.7 (0.8-1.8); Bilirubin, Total 0.3 mg/dL (0.1-1.0); Bun/Creatinine Ratio 49.8 (12.0-20.0); Calcium, Blood 9.3 mg/dL (8.5-10.1); Creatinine, Blood 2.47 mg/dL (0.40-1.00); Globulin, Blood 4.9 g/dL (2.2-4.0); Potassium, Blood 4.1 mmol/L (3.5-5.5); Total Protein, Blood 8.1 g/dL (6.4-8.2)
[2021-03-09 17:26] LABS: Appearance, Urine Clear (Clear); Bilirubin, Urine Neg (Neg); Blood, Urine Neg (Neg); Glucose Qualitative, Urine Neg (Neg); Ketones, Urine Neg (Neg); Leukocyte Esterase, Urine Neg (Neg); Nitrite, Urine Neg (Neg); Protein, Urine 1+ (Neg); Specific Gravity, Urine 1.015 (1.003-1.022); Urobilinogen, Urine NORM (Normal)
[2021-03-09 17:29] LABS: Color, Urine Pale Yellow (P-Yellow)
[2021-03-09 17:34] LABS: BASOPHILS ABSOLUTE AUTO 0.01 K/mm3 (0.00-0.23); BASOPHILS PERCENT AUTO 0 % (0-2); EOSINOPHILS ABSOLUTE AUTO 0.08 K/mm3 (0.00-0.68); EOSINOPHILS PERCENT AUTO 2 % (0-6); Hematocrit 34.8 % (33.0-51.0); Hemoglobin 11.9 g/dL (11.5-16.0); IMMATURE GRAN ABSOLUTE AUTO 0.04 K/mm3 (0.00-0.10); IMMATURE GRAN PERCENT AUTO 1 % (0-1); LYMPHOCYTES ABSOLUTE AUTO 0.56 K/mm3 (0.84-5.20); LYMPHOCYTES PERCENT AUTO 13 % (21-46); MONOCYTES PERCENT AUTO 11 % (4-13); Mean Corpuscular HGB 28.7 pg (26.0-34.0); Mean Corpuscular HGB Conc 34.2 g/dL (31.5-36.5); Mean Corpuscular Volume 84 fL (80-100); Mean Platelet Volume 10.4 fL (9.1-12.4); NEUTROPHILS ABSOLUTE AUTO 3.18 K/mm3 (1.96-9.15); NEUTROPHILS PERCENT AUTO 73 % (41-73); Platelet Count 222 K/mm3 (150-400); RDW Coefficient Variation 13.9 % (11.7-14.2); RDW Standard Deviation 42.9 fL (35.1-46.3); Red Blood Cell Count 4.15 M/mm3 (3.80-5.20); White Blood Cell Count 4.37 K/mm3 (4.00-11.30)
[2021-03-09] MEDS ORDERED: Bisoprolol Fumar5 MG PO (19:18)
[2021-03-09 22:15] LABS: Hematocrit 30.7 % (33.0-51.0); Hemoglobin 10.7 g/dL (11.5-16.0)
[2021-03-09 22:31] LABS: Albumin, Blood 2.8 g/dL (3.4-5.0); Anion Gap 7 mmol/L (6-16); Blood Urea Nitrogen 109 mg/dL (8-24); Bun/Creatinine Ratio 47.2 (12.0-20.0); CO2, Blood 21 mmol/L (21-32); Calcium, Blood 8.5 mg/dL (8.5-10.1); Chloride, Blood 109 mmol/L (98-108); Creatinine, Blood 2.31 mg/dL (0.40-1.00); Glomerular Filtration Rate 20 (60-); Glucose, Blood 123 mg/dL (70-99); Potassium, Blood 3.7 mmol/L (3.5-5.5); Sodium, Blood 137 mmol/L (136-145)
--- NOTE | 2021-03-10 04:51 | NUR ---
PATIENT IS AN ADMIT FROM ER. RN TO RN REPORT RECEIVED. PATIENT IS ADMITTED FOR ACUTE KIDNEY INJURY WITH A GFR OF 19, BUN OF 123 AND CREATININ OF 2.47. PATIENT IS ALERT AND ORIENTED X3, WITH PERIODS OF CONFUSION AND FORGETFULNESS. PATIENT HAS A COLOSTOMY BAG, PATIENT WAS UP TO USE THE BEDPAN AND VOIDED 300CC OF CLEAR YELLOW URINE. PATIENT PATIENT HAS DIAGNOSIS OF COPD AND ON 4L 02 THTT IS HER BASELINE. PATIENT'S VITAL SIGNS ARE WNL. PATIENT DENIES HEADACH, PAIN, SOB, NUMBNESSOR TINGLING SENSATIONS. PATIENT REPORTS SHE HAS NOT EATEN OR DRINK FOR 1 WEEK DUE TO LACK OF APPETITE. PATIENT WAS OFFERED SOME JELLO. PATIENT HAS PAST MEDICAL HISTORY OF COPD, AFIB, DVT, AND PATIENT IS ON ANTICOAGULANTS. PAPATIENT CALLED FOR SLEEPING PILLS AND PATIENT WAS MEDICATED WITH MELATONIN PER EMAR WITH GOOD EFFFECT. PATIENT IS ON IV FLUIDS, FLUIDS RUNNING WELL ON LEFT AC, NO ISSUES. COLOSTOMY BAG CHANGED NO ISSUES. CALL LIGHT IN PLACE, BED IN LOW POSITION, AND BED ALARM ON. WILL CONTINUE TO MONITOR.
[2021-03-10 04:54] LABS: Albumin, Blood 2.4 g/dL (3.4-5.0); Albumin/Globulin Ratio 0.6 (0.8-1.8); Bilirubin, Total 0.3 mg/dL (0.1-1.0); Bun/Creatinine Ratio 48.1 (12.0-20.0); Creatinine, Blood 2.06 mg/dL (0.40-1.00); Globulin, Blood 4.1 g/dL (2.2-4.0); Potassium, Blood 3.9 mmol/L (3.5-5.5); Total Protein, Blood 6.5 g/dL (6.4-8.2)
--- NOTE | 2021-03-10 06:46 | NUR ---
Illeostomy bag changed, new wafer, skin is intact under appliance. Pt states her stool is thicker and that her stoma is more swollen than usual.
--- NOTE | 2021-03-10 16:41 | NUR ---
PT IS A/OX3, FORGETFULL AT TIMES. PT IS UP WITH MINIMAL ASSIST TO THE BSC. THE PT REPORTS FEELING TIRED AND NEEDS ENCOURAGEMNET TO GET UP FROM THE BED. THE PT SO FAR TODAY HAS HAD A GOOD APPETITE. THE PT APPEARS TO BE BREATHING EASILY AT REST WITHOUT O2. PT REPORTS THAT SHE ONLY NEEDS O2 WITH ACTIVITY. PT HAS A ILEOSTOMY IN PLACE AND SECURE. THE PT HAS HAD SOME STOOL AND GAS IN TH ILEOSTOMY.CALL LIGHT IN REACH, WILL CONTINUE TO MONITOR AND ASSESS FOR CHANGES
[2021-03-11 04:35] LABS: Albumin, Blood 2.1 g/dL (3.4-5.0); Anion Gap 6 mmol/L (6-16); Blood Urea Nitrogen 69 mg/dL (8-24); Bun/Creatinine Ratio 35.6 (12.0-20.0); CO2, Blood 23 mmol/L (21-32); Calcium, Blood 7.5 mg/dL (8.5-10.1); Chloride, Blood 110 mmol/L (98-108); Creatinine, Blood 1.94 mg/dL (0.40-1.00); Glomerular Filtration Rate 25 (60-); Glucose, Blood 109 mg/dL (70-99); Phosphorus, Blood 2.2 mg/dL (2.5-4.9); Potassium, Blood 3.2 mmol/L (3.5-5.5); Sodium, Blood 139 mmol/L (136-145)
--- NOTE | 2021-03-11 06:06 | NUR ---
PATIENT IS ALERT AND RESPONSIVE. PATIENT DENIES PAIN OR ANY DISTRESS. PATIENT CONTINUES WITH CONFUSION AND FORGETFULLNESS. PATIENT TRANSFERED HERSLF TO THE COMMODE WITHOUT USING THE CALL LIGHT. PATIENT WAS REDIRECTED TO USE HER CALL LIGHT FOR SAFETY. PATIENT SLEPT WELL ALL NOT NIGHT NO WITH NO ACUTE EVENT NOTED.
--- NOTE | 2021-03-11 10:37 | NUR ---
NOTIFIED DR BECERRA OF K 3.2 AND PHOS 2.2 AND THAT NAHCO3 COMPLETE AND THAT NS IS ONLY IVF AT 50ML/HR. WANTS TO CONTINUE
[2021-03-11] MEDS ORDERED: ALBU2.5V5 INH (11:41)
[2021-03-11] MEDS ORDERED: ATOR20 PO (11:41)
[2021-03-11 16:36] LABS: Albumin, Blood 2.5 g/dL (3.4-5.0); Anion Gap 4 mmol/L (6-16); Blood Urea Nitrogen 57 mg/dL (8-24); Bun/Creatinine Ratio 30.5 (12.0-20.0); CO2, Blood 25 mmol/L (21-32); Calcium, Blood 7.9 mg/dL (8.5-10.1); Chloride, Blood 110 mmol/L (98-108); Creatinine, Blood 1.87 mg/dL (0.40-1.00); Glomerular Filtration Rate 26 (60-); Glucose, Blood 85 mg/dL (70-99); Phosphorus, Blood 2.1 mg/dL (2.5-4.9); Potassium, Blood 3.6 mmol/L (3.5-5.5); Sodium, Blood 139 mmol/L (136-145)
--- NOTE | 2021-03-11 18:07 | NUR ---
SUMMARY- PT A/O X3-4, USUS CALL LIGHT, GETS UP TO BSC TO VOID. VOIDING CLEAR YELLOW URINE. IVF NS AT 75. RECEIED KCL REPLACEMENT FOR KCL 3.2 AM LAB. TOLERATING FOOD AND FLUIDS. VSS. LIVES AT HOME ALONE AND WILL NOT BE ABLE TO CARE FOR SELF, UNASTABLE ON FEET. WILL NEED SS TO ARRANGE ASSIST UNTIL PT ABLE TO FUNCTION AT BASELINE.
--- NOTE | 2021-03-12 04:50 | NUR ---
PATIENT IS A/O X3. PATIENT DENIES PAIN, SOB AND N/V. PATIENT UP TO USE THE BSC X3 VOIDED 480MLs and EMPTIED 175MLs FROM THE ILEOSTOMY BAG. PATIENT REQUESTED MELATONIN FOR SLEPT AND WAS MEDICATED WITH 1MG. PATIENT SLEPT ALL NIGHT NO COMPLAIN VOICED. WILL CONTINUE TO MONITOR.
[2021-03-12 05:49] LABS: Albumin, Blood 1.9 g/dL (3.4-5.0); Anion Gap 5 mmol/L (6-16); Blood Urea Nitrogen 51 mg/dL (8-24); Bun/Creatinine Ratio 26.3 (12.0-20.0); CO2, Blood 22 mmol/L (21-32); Calcium, Blood 7.4 mg/dL (8.5-10.1); Chloride, Blood 115 mmol/L (98-108); Creatinine, Blood 1.94 mg/dL (0.40-1.00); Glomerular Filtration Rate 25 (60-); Glucose, Blood 115 mg/dL (70-99); Magnesium, Blood 1.4 mg/dL (1.6-2.4); Phosphorus, Blood 2.1 mg/dL (2.5-4.9); Potassium, Blood 3.6 mmol/L (3.5-5.5); Sodium, Blood 142 mmol/L (136-145)
[2021-03-12 15:14] LABS: Albumin, Blood 2.2 g/dL (3.4-5.0); Anion Gap 6 mmol/L (6-16); Blood Urea Nitrogen 43 mg/dL (8-24); Bun/Creatinine Ratio 23.8 (12.0-20.0); CO2, Blood 24 mmol/L (21-32); Calcium, Blood 7.7 mg/dL (8.5-10.1); Chloride, Blood 110 mmol/L (98-108); Creatinine, Blood 1.81 mg/dL (0.40-1.00); Glomerular Filtration Rate 27 (60-); Glucose, Blood 122 mg/dL (70-99); Phosphorus, Blood 3.7 mg/dL (2.5-4.9); Potassium, Blood 3.4 mmol/L (3.5-5.5); Sodium, Blood 140 mmol/L (136-145)
--- NOTE | 2021-03-12 17:42 | NUR ---
SUMMARY- PT A/O X3, USES CALL LIGHT. GETS UP TO BSC AND VOIDS. COLOSTOMY PATENT AND DRAINING FLUFFY SOFT BROWN STOOL AND FLATUS. STATES HER APPETIBE IS COMING BACK AND TOLERATING FOOD AND FLULID. IVF INFUSING NS AT 75, GENTLE HYFRATION TO AID IN KIDNEY FUNCTION TO RETURN. GAVE SOME ELECTROLYTE REPLACEMENT THIS AM. VSS. USES O2 ON/OFF DEPENDING ON ACTIVITY. LUNGS CLEAR, NO EDEMA. WORKED WITH PT/OT TODAY. WILL REPORT TO ESSENCE MARES.
--- NOTE | 2021-03-13 05:15 | NUR ---
PT SLEPT THROUGH THE NIGHT WIHOUT ANY DISTRESS. MEDICATED X1 FOR HEADACHE WITH GOOD EFFECT. O2 2L NC IN PLACE RESP UNLABORED. BLADDER SCAN. NO RESIDUAL. ASSISTED TO BSC. COLOSTOMY BAG DRAINED NEEDED. CALL LIGHT WITHIN REACH. NO EVENT. VSS.
[2021-03-13 05:34] LABS: Albumin, Blood 1.8 g/dL (3.4-5.0); Anion Gap 5 mmol/L (6-16); Blood Urea Nitrogen 45 mg/dL (8-24); Bun/Creatinine Ratio 23.2 (12.0-20.0); CO2, Blood 20 mmol/L (21-32); Calcium, Blood 7.5 mg/dL (8.5-10.1); Chloride, Blood 115 mmol/L (98-108); Creatinine, Blood 1.94 mg/dL (0.40-1.00); Glomerular Filtration Rate 25 (60-); Glucose, Blood 105 mg/dL (70-99); Magnesium, Blood 1.7 mg/dL (1.6-2.4); Phosphorus, Blood 2.5 mg/dL (2.5-4.9); Potassium, Blood 3.6 mmol/L (3.5-5.5); Sodium, Blood 140 mmol/L (136-145)
[2021-03-13 10:17] LABS: SARS-Cov-2 (COVID-19) PCR, MMC NEGATIVE (NEGATIVE)
[2021-03-13] MEDS ORDERED: DOCU100 PO (15:28)
[2021-03-13] MEDS ORDERED: Acetaminophen650 M1 PO (15:28)
[2021-03-13] MEDS ORDERED: SENN187 PO (15:29)
--- NOTE | 2021-03-13 15:44 | NUR ---
SHIFT SUMMARY PT RESTING QUIETLY AT START OF SHIFT. PT ASKING ABOUT WHEN SHE IS GOING HOME. APPEARS SAD WITH FLAT AFFECT. PT REPORTED THAT SHE IS UNABLE TO GO HOME BY HERSELF. PT TO D/C TO [facility] WITH ASSIST WHEN INSURANCE CLEAR. RT SIDE COLOSTOMY, EMPTIED THIS AM; LOOSE GREEN STOOL. NO C/O. DENIED FURTHER NEEDS AT THIS TIME. CALL LT IN REACH.
--- NOTE | 2021-03-14 03:46 | NUR ---
PT SLEPT THROUGH THE NIGHT WITHOUT DISTRESS. SHE DENIES ANY DISCOMFORT. RESP UNLABORED. SAFETY AND COMFORT MEASURES MAINTAINED. NO EVENT DURING THE NIGHT.
--- NOTE | 2021-03-14 18:43 | NUR ---
PT REMAIN STABLE,DENIES PAIN ,NEW ORDER FOR SNIF PLACEMENT.ASSISTED NEEDED,NO DISTRESS NOTED.
--- NOTE | 2021-03-15 03:52 | NUR ---
PT IS AAO. RESP UNLABORED. MEDICATED X1 PRN FOR HEADACHE. SLEPT WELL. SAFETY AND COMFORT MEASURES MAINTANED. RIGHT COLOSTOMY DRAINING WELL. WILL CONTINUE TO MONITOR.
--- NOTE | 2021-03-15 18:23 | NUR ---
PT REMAIN STABLE,ASSISTED NEEDED, COLOSTOMY BAG DRAINED AND SITE CLEANED.APPETITE FAIR,ASSISTED TO BEDSIDE COMMODE NEEDED.VITALS REMAIN WNL,CALL LIGHT IN PLACE.
--- NOTE | 2021-03-15 20:10 | NUR ---
The stool in Joanie's colostomy bag is of water consistancy. Senna and colace were held per patient request at .
[2021-03-16 05:01] LABS: Albumin, Blood 1.9 g/dL (3.4-5.0); Anion Gap 6 mmol/L (6-16); Blood Urea Nitrogen 22 mg/dL (8-24); Bun/Creatinine Ratio 14.6 (12.0-20.0); CO2, Blood 19 mmol/L (21-32); Calcium, Blood 7.5 mg/dL (8.5-10.1); Chloride, Blood 118 mmol/L (98-108); Creatinine, Blood 1.51 mg/dL (0.40-1.00); Glomerular Filtration Rate 33 (60-); Glucose, Blood 98 mg/dL (70-99); Magnesium, Blood 1.3 mg/dL (1.6-2.4); Phosphorus, Blood 2.8 mg/dL (2.5-4.9); Potassium, Blood 3.3 mmol/L (3.5-5.5); Sodium, Blood 143 mmol/L (136-145)
[2021-03-16 05:40] LABS: Hematocrit 24.8 % (33.0-51.0); Hemoglobin 8.3 g/dL (11.5-16.0); Mean Corpuscular Volume 87 fL (80-100); Mean Platelet Volume 9.6 fL (9.1-12.4); Platelet Count 167 K/mm3 (150-400); RDW Coefficient Variation 14.6 % (11.7-14.2); RDW Standard Deviation 47.5 fL (35.1-46.3); Red Blood Cell Count 2.86 M/mm3 (3.80-5.20); White Blood Cell Count 3.82 K/mm3 (4.00-11.30)
[2021-03-16 05:41] LABS: Mean Corpuscular HGB Conc 33.5 g/dL (31.5-36.5)
--- NOTE | 2021-03-16 06:13 | NUR ---
slept well most of night, waking only twice to use the bedside commode and have iliostomy bag emptied. patient requested no more senna or colace as her stool is already liquid. Joanie is alert and oriented X 3-4 with frequent memory lapses. patient had no complaints of pain or discomfort "out of the ordinary." She did take 650 of APAP with 1 mg of melatonin to help her sleep.
--- NOTE | 2021-03-16 18:45 | NUR ---
CALLED DR BECERRA- PT RESP RATE ELEVATED TO 28 BREATHS PER MINUTE. HR STILL STABLE SINUS TACH AT 104. SPOKE TO PREVIOUS DOSE OF ATIVAN WAS HELD (ORDERED DURING RAPID RESPONSE) AFTER THE PT RECIEVED IV METOPROLOL HR AND BP REDUCED AND RESP RATE RETURNED TO WNL, NO S&S OF ANXIETY OR DISTRESS. RAPID RESPONSE RN'S AGREED TO HOLD THE ATIVANTO PREVENT DROPPING THE BP TOO LOW. DR BECERRA IS AWARE OF THIS. CURRENT SBP 135 RECIEVED ORDER TO GIVE 0.5MG IV ATIVAN NOW, PREVIOUS ORDER TO BE CANCELLED. BEDSIDE RN TO GIVE MEDICATION ONCE VERIFIED BY PHARMACY. CALLED PHARMACY AND REQUESTED A SAUCEDO FOR THE VERIFICATION. PT JULIENNE IS AT THE BEDSIDE.
--- NOTE | 2021-03-17 04:23 | NUR ---
SHIFT SUMMARY AOX3, SLOW TO RESPOND & FORGETFUL. TELE ST @125 AT BEGINNING OF NIGHT, HR THEN DECREASED TO 101. PT APPEARS ANXIOUS c ASSESSMENT ASKING MULTIPLE QUESTIONS & RR 28. DENIES PAIN, SOB, OR N/V. VSS. SPO2 @100% ON 4L O2, THEREFORE TITRATED O2 DOWN TO 2L. OSTOMY R SIDE ABD DRAINING LIQUID BM, HELD HS BOWEL CARE. NS RUNNING @75/HR. PLAN TO HAVE SPEECH EVAL TO ASSESS COG STATUS TODAY. CALL LIGHT IN REACH & PT ABLE TO MAKE NEEDS KNOWN. WCTM.
[2021-03-17 05:12] LABS: Magnesium, Blood 1.2 mg/dL (1.6-2.4)
[2021-03-17 05:13] LABS: Bun/Creatinine Ratio 14.8 (12.0-20.0); Calcium, Blood 8.2 mg/dL (8.5-10.1); Creatinine, Blood 1.35 mg/dL (0.40-1.00); Potassium, Blood 4.3 mmol/L (3.5-5.5)
--- NOTE | 2021-03-17 08:25 | NUR ---
PT AAOX3,RECIEVED IN BED,NO ACUTE DISTRESS NOTED,DENIES OR DISCOMFORT,POC REVIEWED,MEDS GIVEN ORDERED,CONTINUE ON 02 THERAPY N/C. CALL LIGHT WITHIN REACH.ALSO SEEN BY DR SCHREIBER,PLAN TO D/C HYDRALAZINE.MONITORING CONT.
--- NOTE | 2021-03-17 18:28 | NUR ---
PT REMAIN STABLE ALL SHIFT,SEN BY OT, PT, AND ST,TOLERATED SESSIONS WELL,NO ACUTE DISTRESS NOTED. APPETITE FAIR, COLOSTOMY BAG EMPTIEDAS NEEDED, SOFT, BROWN STOOL NOTED.CALL LIGHT WITHIN REACH,WILL CONT TO MONITOR. .
--- NOTE | 2021-03-18 04:55 | NUR ---
SHIFT SUMMARY AOX3. FORGETFUL. STATES CONFUSED @TIMES. PLEASENT & COOPERATIVE. PT MORE CALM & LESS ANXIOUS THIS SHIFT THEN PREVIOUS NIGHT. VSS. TELE NSR @92. DENIES PAIN, N/V OR SOB. COLOSTOMY APPLIANCE CHANGED THIS SHIFT. NS @75ML/HR RUNNING. CALL LIGHT IN REACH & PT ABLE TO MAKE NEEDS KNOWN. WCTM.
[2021-03-18 05:09] LABS: Anion Gap 4 mmol/L (6-16); Blood Urea Nitrogen 25 mg/dL (8-24); Bun/Creatinine Ratio 16.7 (12.0-20.0); CO2, Blood 21 mmol/L (21-32); Calcium, Blood 7.9 mg/dL (8.5-10.1); Chloride, Blood 118 mmol/L (98-108); Glomerular Filtration Rate 33 (60-); Glucose, Blood 99 mg/dL (70-99); Magnesium, Blood 1.5 mg/dL (1.6-2.4); Phosphorus, Blood 3.3 mg/dL (2.5-4.9); Potassium, Blood 4.2 mmol/L (3.5-5.5); Sodium, Blood 143 mmol/L (136-145)
--- NOTE | 2021-03-18 19:21 | NUR ---
PT REMAINED STABLE, CONT ON 02 VIA N/C AT 2L NO DISTRESS NOTED, APPETITE FAIR, COLOSTOMY BAG EMPTIED NEEDED. ASSISTED TO BR NEEDED WITH WALKER.CALL LIGHT IN PLACE, DENIES PAIN ALL SHIFT.
[2021-03-19 05:30] LABS: Bun/Creatinine Ratio 17.8 (12.0-20.0); Calcium, Blood 8.2 mg/dL (8.5-10.1); Creatinine, Blood 1.52 mg/dL (0.40-1.00); Magnesium, Blood 1.4 mg/dL (1.6-2.4); Potassium, Blood 4.2 mmol/L (3.5-5.5)
--- NOTE | 2021-03-19 06:03 | NUR ---
VSS,NO COMPLAINS OF PAIN, ILEOSTOMY BAG EMPTIED AND WAFER CHANGED.PT ABLE TO VERBALIZE NEEDS, AOX4. SAFTEY MEAURES IN PLACE, CALL LIGHT IN REACH
--- NOTE | 2021-03-19 17:43 | NUR ---
SHIFT SUMMARY 80 Y FEMALE ADMITED WITH RYAN AND HX OF COPD. PT IS A&O, UP WITH MINIMAL SBA TO TRANSFER. PT IS ON 2L 02 VIA N/C AT HOME AND IN HOSPITAL. D/C PLANNING IN PROCESS FOR PROBABLE D/C BACK HOME ALONE WITH [employer]. NO OTHER CHANGES THIS SHIFT.
[2021-03-20 05:43] LABS: Mean Corpuscular Volume 96 fL (80-100); Mean Platelet Volume 9.6 fL (9.1-12.4); Platelet Count 178 K/mm3 (150-400); RDW Coefficient Variation 15.3 % (11.7-14.2); RDW Standard Deviation 49.4 fL (35.1-46.3); Red Blood Cell Count 2.19 M/mm3 (3.80-5.20); White Blood Cell Count 3.24 K/mm3 (4.00-11.30)
[2021-03-20 05:45] LABS: Hemoglobin 8.4 g/dL (11.5-16.0); Mean Corpuscular HGB 38.4 pg (26.0-34.0)
[2021-03-20 06:04] LABS: Albumin, Blood 2.2 g/dL (3.4-5.0); Anion Gap 5 mmol/L (6-16); Blood Urea Nitrogen 28 mg/dL (8-24); Bun/Creatinine Ratio 17.6 (12.0-20.0); CO2, Blood 20 mmol/L (21-32); Calcium, Blood 8.1 mg/dL (8.5-10.1); Chloride, Blood 115 mmol/L (98-108); Creatinine, Blood 1.59 mg/dL (0.40-1.00); Glomerular Filtration Rate 31 (60-); Glucose, Blood 88 mg/dL (70-99); Magnesium, Blood 1.3 mg/dL (1.6-2.4); Sodium, Blood 140 mmol/L (136-145)
--- NOTE | 2021-03-20 06:30 | NUR ---
PT VSS, NO COMPLAINTS OF PAIN. ASSISTED TO BSC. ILEOSTOMY EMPTIED. NO COMPLAINS OF SOB, SAFETY MEASURES IN PLACE, CALL LIGHT IN REACH
--- NOTE | 2021-03-20 17:39 | NUR ---
SHIFT SUMMARY 80 Y FEMALE ADMITED WITH RYAN AND HX OF COPD. PT IS A&O, UP WITH MINIMAL SBA TO TRANSFER. PT IS ON 2L 02 VIA N/C AT HOME AND IN HOSPITAL. D/C ORDERS RECIEVED AND REVIEWED AND IMPLEMENTED. PT IS TO BE D/C TO [facility] FOR RESPITE CARE AND THEN WILL RETURN TO HER HOME [facility] WITH [employer]. DISCUSSED PLANS WITH PT AND PT VERBALIZED UNDERSTNDING. REPORT CALLED TO [facility] RN AND IV REMOVED INTACT, PT TOLERATED WELL. PT IS SITTING UP IN BED EATING DINNER AWAITING W/C TRANSPORT. CALL LIGHT WITHIN REACH.
[2021-03-20 17:54] LABS: SARS-Cov-2 (COVID-19) PCR, MMC NEGATIVE (NEGATIVE)
== END 2021-03-20 21:40 | DRG 682 ==
LOC: ER 16:12 → MEDS 18:55
PROVIDERS: Family Medicine; Internal Medicine; ADMIT Internal Medicine
DX: N17.0 Acute kidney failure with tubular necrosis (principal); G93.41 Metabolic encephalopathy; E87.1 Hypo-osmolality and hyponatremia; Z20.822 Contact with and (suspected) exposure to COVID-19; I48.0 Paroxysmal atrial fibrillation; E87.6 Hypokalemia; E83.42 Hypomagnesemia; E83.39 Other disorders of phosphorus metabolism; J44.9 Chronic obstructive pulmonary disease, unspecified; F41.9 Anxiety disorder, unspecified; G31.84 Mild cognitive impairment of uncertain or unknown etiology; D53.9 Nutritional anemia, unspecified; E78.5 Hyperlipidemia, unspecified; F32.A Depression, unspecified; I12.9 Hypertensive chronic kidney disease with stage 1 through stage 4 chronic kidney disease, or unspecified chronic kidney disease; N18.30 Chronic kidney disease, stage 3 unspecified; R91.8 Other nonspecific abnormal finding of lung field; Z88.1 Allergy status to other antibiotic agents; Z79.01 Long term (current) use of anticoagulants; Z93.2 Ileostomy status; Z28.21 Immunization not carried out because of patient refusal; Z79.899 Other long term (current) drug therapy; Z90.49 Acquired absence of other specified parts of digestive tract; Z90.89 Acquired absence of other organs; Z98.890 Other specified postprocedural states; Z87.891 Personal history of nicotine dependence; Z86.718 Personal history of other venous thrombosis and embolism
CPT/HCPCS: 36415; 71045; 76770; 80048; 80053; 80069; 82570; 83735; 83935; 84145; 84300; 84484; 85014; 85018; 85025; 85027; 92507; 92523; 92526; 93005; 93010; 94640; 94664; 94760; 94762; 97110; 97116; 97162; 97166; 97530; 97535; 99285-25; A9270; J0360; J2060; J3475; J7030; J7060; J7070; U0004

== ENCOUNTER → 2021-04-05 | Outpatient (CLI) | payer OTHER ==
[~2021-04-05] MED LIST changes: +ALBU2.5V5 INH; +ATOR20 PO; +Acetaminophen650 M1 PO; +Bisoprolol Fumar5 MG PO; +SENN187 PO
[2021-04-05 16:35] LABS: BASOPHILS ABSOLUTE AUTO 0.03 K/mm3 (0.00-0.23); BASOPHILS PERCENT AUTO 1 % (0-2); EOSINOPHILS ABSOLUTE AUTO 0.21 K/mm3 (0.00-0.68); EOSINOPHILS PERCENT AUTO 4 % (0-6); Hematocrit 34.1 % (33.0-51.0); Hemoglobin 10.6 g/dL (11.5-16.0); IMMATURE GRAN ABSOLUTE AUTO 0.07 K/mm3 (0.00-0.10); IMMATURE GRAN PERCENT AUTO 1 % (0-1); LYMPHOCYTES ABSOLUTE AUTO 0.81 K/mm3 (0.84-5.20); LYMPHOCYTES PERCENT AUTO 14 % (21-46); MONOCYTES ABSOLUTE AUTO 0.93 K/mm3 (0.16-1.47); MONOCYTES PERCENT AUTO 16 % (4-13); Mean Corpuscular HGB 28.3 pg (26.0-34.0); Mean Corpuscular HGB Conc 31.1 g/dL (31.5-36.5); Mean Corpuscular Volume 91 fL (80-100); Mean Platelet Volume 9.7 fL (9.1-12.4); NEUTROPHILS ABSOLUTE AUTO 3.81 K/mm3 (1.96-9.15); NEUTROPHILS PERCENT AUTO 65 % (41-73); Platelet Count 293 K/mm3 (150-400); RDW Coefficient Variation 13.9 % (11.7-14.2); Red Blood Cell Count 3.74 M/mm3 (3.80-5.20); White Blood Cell Count 5.86 K/mm3 (4.00-11.30)
[2021-04-05 17:01] LABS: Alanine Aminotransfer (ALT/SGP 17 U/L (12-78); Albumin, Blood 3.1 g/dL (3.4-5.0); Albumin/Globulin Ratio 0.6 (0.8-1.8); Alk Phos 65 U/L (50-136); Anion Gap 6 mmol/L (6-16); Aspartate Aminotrans (AST/SGOT 18 U/L (12-37); Bilirubin, Direct 0.1 mg/dL (0.0-0.3); Bilirubin, Indirect 0.2 mg/dL (0.1-0.7); Bilirubin, Total 0.3 mg/dL (0.1-1.0); Blood Urea Nitrogen 29 mg/dL (8-24); Bun/Creatinine Ratio 22.5 (12.0-20.0); CHOL/HDL RATIO 2.3; CO2, Blood 29 mmol/L (21-32); Chloride, Blood 101 mmol/L (98-108); Cholesterol 137 mg/dL (50-200); Creatinine, Blood 1.29 mg/dL (0.40-1.00); Ferritin, Serum 187 ng/mL (8-252); Globulin, Blood 5.1 g/dL (2.2-4.0); Glomerular Filtration Rate 40 (60-); Glucose, Blood 116 mg/dL (70-99); HDL Cholesterol 59 mg/dL (>39); Iron Serum 53 ug/dL (50-170); Phosphorus, Blood 3.4 mg/dL (2.5-4.9); Potassium, Blood 4.4 mmol/L (3.5-5.5); Sodium, Blood 136 mmol/L (136-145); Total Protein, Blood 8.2 g/dL (6.4-8.2)
[2021-04-05 17:03] LABS: LDL/HDL RATIO 1.1; Low Density Lipoprotein Chol 66 mg/dL (0-110); Percent Saturation 19.4 % (15.0-50.0); Total Iron Binding Capacity 273 ug/dL (250-450); Triglycerides 60 mg/dL (30-160); Very Low Density Lipoprot Chol 12 mg/dL (6-32)
[2021-04-05 18:25] LABS: Thyroxine (T4) 10.3 ug/dL (4.8-13.9); Uric Acid, Blood 6.1 mg/dL (2.6-6.0)
[2021-04-05 18:36] LABS: Free Thyroxine Index 3.2 % (1.3-4.8); T3 Uptake 31 % (30-39)
[2021-04-08 15:10] LABS: A/G RATIO 0.9 (0.7-1.7); ALBUMIN 3.3 g/dL (2.9-4.4); ALPHA-1-GLOBULIN 0.3 g/dL (0.0-0.4); ALPHA-2-GLOBULIN 0.8 g/dL (0.4-1.0); GAMMA GLOBULIN 1.9 g/dL (0.4-1.8); IMMUNOGLOBULIN A, QN, SERUM 119 mg/dL (64-422); IMMUNOGLOBULIN G, QN, SERUM 1861 mg/dL (586-1602); IMMUNOGLOBULIN M, QN, SERUM 146 mg/dL (26-217); M-SPIKE Not Observed g/dL (Not Observed); PROTEIN, TOTAL, SERUM 7.3 g/dL (6.0-8.5)
[2021-04-09 09:11] LABS: ANTIGLOMERULAR BM AB 3 units (0-20)
[2021-04-09 14:11] LABS: ANA DIRECT Positive (Negative); ANTI-CENTROMERE B ANTIBODIES <0.2 AI (0.0-0.9); ANTI-DNA (DS) AB QN <1 IU/mL (0-9); ANTI-JO-1 <0.2 AI (0.0-0.9); ANTICHROMATIN ANTIBODIES <0.2 AI (0.0-0.9); ANTIMYELOPEROXIDASE (MPO) ABS <9.0 U/mL (0.0-9.0); ANTIPROTEINASE 3 (PR-3) ABS <3.5 U/mL (0.0-3.5); ANTIRIBOSOMAL P ANTIBODIES <0.2 AI (0.0-0.9); ANTISCLERODERMA-70 ANTIBODIES <0.2 AI (0.0-0.9); ATYPICAL PANCA <1:20 titer (Neg:<1:20); CYTOPLASMIC (C-ANCA) <1:20 titer (Neg:<1:20); PERINUCLEAR (P-ANCA) <1:20 titer (Neg:<1:20); RNP ANTIBODIES <0.2 AI (0.0-0.9); SJOGREN'S ANTI-SS-A <0.2 AI (0.0-0.9); SJOGREN'S ANTI-SS-B 1.7 AI (0.0-0.9); SMITH ANTIBODIES <0.2 AI (0.0-0.9); SMITH/RNP ANTIBODIES <0.2 AI (0.0-0.9)
== END | disposition home or self-care (01) ==
LOC: EDSTATUS 11:12 → LAB UVN 14:45
PROVIDERS: Internal Medicine Nephrology
DX: E55.9 Vitamin D deficiency, unspecified (principal); N18.30 Chronic kidney disease, stage 3 unspecified; N25.81 Secondary hyperparathyroidism of renal origin; E78.00 Pure hypercholesterolemia, unspecified; R76.9 Abnormal immunological finding in serum, unspecified; R94.5 Abnormal results of liver function studies; G60.9 Hereditary and idiopathic neuropathy, unspecified
CPT/HCPCS: 80053; 80061; 82248; 82306; 82607; 82728; 82746; 82784; 83516; 83520; 83540; 83550; 83883; 83970; 84100; 84155; 84165; 84436; 84443; 84479; 84550; 85025; 86038; 86256; 86334

== ENCOUNTER → 2021-04-06 | Outpatient (CLI) | payer OTHER ==
[2021-04-06 11:41] LABS: Microalbumin, Urine Quant. <5.000 mg/L (0.000-20.000); Protein, Urine Quantitative 7.5 mg/dL (0.0-11.9)
== END | disposition home or self-care (01) ==
LOC: LAB UVN 07:49 → EDSTATUS 11:13
PROVIDERS: Internal Medicine
DX: E55.9 Vitamin D deficiency, unspecified (principal); N18.30 Chronic kidney disease, stage 3 unspecified; N25.81 Secondary hyperparathyroidism of renal origin; E78.00 Pure hypercholesterolemia, unspecified; R76.9 Abnormal immunological finding in serum, unspecified; R94.5 Abnormal results of liver function studies; R94.6 Abnormal results of thyroid function studies; G60.9 Hereditary and idiopathic neuropathy, unspecified; N17.8 Other acute kidney failure
CPT/HCPCS: 81050; 82043; 82570; 84156

== ENCOUNTER 2022-06-06 16:37 | Emergency (ER) | payer OTHER ==
[~2022-06-06] VITALS: Ht 165.1 cm; Wt 54.4 kg
[2022-06-06 17:29] LABS: BASOPHILS ABSOLUTE AUTO 0.05 K/mm3 (0.00-0.23); BASOPHILS PERCENT AUTO 1 % (0-2); EOSINOPHILS PERCENT AUTO 0 % (0-6); Hematocrit 34.4 % (33.0-51.0); Hemoglobin 12.9 g/dL (11.5-16.0); IMMATURE GRAN ABSOLUTE AUTO 0.09 K/mm3 (0.00-0.10); IMMATURE GRAN PERCENT AUTO 1 % (0-1); LYMPHOCYTES ABSOLUTE AUTO 0.38 K/mm3 (0.84-5.20); LYMPHOCYTES PERCENT AUTO 4 % (21-46); MONOCYTES ABSOLUTE AUTO 0.42 K/mm3 (0.16-1.47); MONOCYTES PERCENT AUTO 5 % (4-13); Mean Corpuscular HGB 34.8 pg (26.0-34.0); Mean Corpuscular HGB Conc 37.5 g/dL (31.5-36.5); Mean Corpuscular Volume 93 fL (80-100); Mean Platelet Volume 9.2 fL (9.1-12.4); NEUTROPHILS ABSOLUTE AUTO 8.06 K/mm3 (1.96-9.15); NEUTROPHILS PERCENT AUTO 90 % (41-73); Platelet Count 329 K/mm3 (150-400); RDW Coefficient Variation 13.2 % (11.7-14.2); RDW Standard Deviation 42.7 fL (35.1-46.3); Red Blood Cell Count 3.71 M/mm3 (3.80-5.20)
[2022-06-06 17:45] LABS: Albumin, Blood 3.8 g/dL (3.4-5.0); Albumin/Globulin Ratio 0.7 (0.8-1.8); Bilirubin, Total 0.4 mg/dL (0.1-1.0); Bun/Creatinine Ratio 24.1 (12.0-20.0); Calcium, Blood 9.8 mg/dL (8.5-10.1); Creatinine, Blood 1.99 mg/dL (0.40-1.00); Globulin, Blood 5.4 g/dL (2.2-4.0); Potassium, Blood 5.2 mmol/L (3.5-5.5); Total Protein, Blood 9.2 g/dL (6.4-8.2)
[2022-06-06 18:32] LABS: Influenza A, PCR NEGATIVE (NEGATIVE); Influenza B, PCR NEGATIVE (NEGATIVE); Resp Syncytial Virus, PCR NEGATIVE (NEGATIVE); SARS-Cov-2 (COVID-19) PCR, MMC NEGATIVE (NEGATIVE)
[2022-06-06] MEDS ORDERED: DICY20 PO (23:20)
== END 2022-06-07 00:09 | disposition home or self-care (01) ==
LOC: ER 16:37
PROVIDERS: Student in an Organized Health Care Education/Training Program
DX: R06.02 Shortness of breath (principal); J44.9 Chronic obstructive pulmonary disease, unspecified; R10.9 Unspecified abdominal pain; I10 Essential (primary) hypertension; I48.0 Paroxysmal atrial fibrillation; Z99.81 Dependence on supplemental oxygen; Z93.2 Ileostomy status; Z88.1 Allergy status to other antibiotic agents; Z79.899 Other long term (current) drug therapy; Z79.01 Long term (current) use of anticoagulants; Z87.891 Personal history of nicotine dependence
CPT/HCPCS: 0241U; 36415; 71046; 74177; 80053; 83880; 84484; 85025; 93005; 93010; J3010; J7030; Q9967